=== PATIENT | male | born 1975 | race Caucasian/White ===

== ENCOUNTER → 2024-08-30 | Outpatient (CLI) | payer BC ==
[2024-08-30 13:54] VITALS: BP 134/84; PULSE 76; RESP 16; TEMP 98.1
--- NOTE | 2024-08-30 14:34 | P.SLEEP ---
History of Present Illness DATE: 08/30/2024 CONSULTATION/NEW PATIENT EVALUATION HISTORY OF PRESENT ILLNESS/SLEEP-WAKE EVALUATION: 48-year-old gentleman had been evaluated in the sleep center for possible obstructive sleep apnea hypopnea syndrome and significant excessive daytime sleepiness. In March 2024 patient had home sleep apnea test, which was negative for obstructive sleep apnea hypopnea syndrome. SLEEP SCHEDULE: Usually sleep schedule from 10 PM to 5 AM on working days and from 11 PM to 7 AM on weekend. FALLING ASLEEP: No problems with falling asleep. DURING SLEEP: Patient usually sleeps on the stomach position and wakes up from sleep multiple times with 1 episode of nocturia. No history of hypnogogical hallucinations, sleep paralysis, or cataplexy. DURING THE DAY/WAKE STATE: In the morning patient wake up tired, feels sleepiness during the day. [place] sleepiness scale is significantly increased to 14. Patient does not take naps during the day, but referred that will be able to fall asleep easily. PAST MEDICAL HISTORY: Hyperlipidemia, prediabetes, episodes of dizziness. PAST SURGICAL HISTORY: None. MEDICATIONS: None. SOCIAL HISTORY: Please see below. FAMILY HISTORY: Please see below. REVIEW OF SYSTEMS: Multiple awakenings from sleep, sleepiness during the day. No fevers. No double vision. No recent chest pain. No shortness of breath. No abdominal pain. No bleeding episodes. No blood in urine. No seizure episodes. PHYSICAL EXAMINATION: GENERAL: A pleasant patient without any distress. VITAL SIGNS: Please see below, weight 231 pounds, BMI 30.4. HEENT: PERRLA, EOMI. Evaluation of oropharynx showed tongue protrudes midline, low position of soft palate Mallampati 4, retrognathia 1 to 2 mm. NECK: Supple. No JVD. Thyroid is not palpable. 16.5 inches in circumference. LUNGS: Clear to percussion and to auscultation. Good air exchange. No wheezing or rhonchi. HEART: S1, S2 regular. No murmurs, gallops or rubs. ABDOMEN: Soft and nontender. Bowel sounds are present. No organomegaly appreciated. EXTREMITIES: No clubbing or cyanosis. ORTHOPEDIC PHYSICAL THERAPIST: Awake, alert, and oriented x3. Cranial nerves 2 to 7 intact. There is no fasciculation or atrophy noted. No focal deficits observed. ASSESSMENT: 1. Multiple awakenings from sleep, extremely low position of soft palate Mallampati 4, sleepiness, possible obstructive sleep apnea hypopnea syndrome. Results of home sleep apnea test which was done in another institution was negative. 2. Significant excessive daytime sleepiness with [place] Sleepiness Scale 14 dictate necessity to include hypersomnia and differential diagnosis. 3. Hyperlipidemia. 4. Prediabetes. 5 episodes of dizziness. 6 . Mild obesity, BMI 30.4. PLAN: 1. Polysomnography for evaluation of patient's breathing during sleep. Multiple sleep latency test if sleep study will be negative for obstructive sleep apnea hypopnea syndrome. 2. Following plan after reading sleep study. 3. Preferable position during sleep on the side. 4. No driving if patient feels any sleepiness. Patient is aware of civil and criminal liability for unsafe driving. 5. Sleep hygiene with regular sleep time for at least 7.5-8 hours. 6. Watching and losing weight. Thank you very much for referring this patient for consultation. Sincerely, Will Hutson MD, PhD, FAASM. Diplomat of [place] [employer], Sleep Medicine Board by [place] [employer] [place] [employer] Guide of [facility] [place] cc: Agustin Kidd MD, Martha Marinelli [facility] Past Medical History Past Medical History: No Reported History History of Any Multi-Drug Resistant Organisms: None Reported Past Anesthesia/Blood Transfusion Reactions: No Reported Reaction Past Psychological History: No Psychological Hx Reported Smoking Status: Current some day smoker Past Alcohol Use History: Occasional Past Drug Use History: None Reported - Past Family History Daughter(s) Family Medical History: Coronary Artery Disease (CAD) Physical Exam Vitals: Vital Signs Temp Pulse Resp BP Pulse Ox 08/30/24 13:53 98.1 F 76 16 134/84 96 Intake and Output 08/29/24 08/30/24 08/30/24 22:59 06:59 14:59 Other: Weight 104.78 kg Sleep Note - Sleep Data ESS Total: 6 - Sleep Note Sleep Note: Temperature: 98.1 F Pulse Rate: 76 Respiratory Rate: 16 Blood Pressure: 134/84 SpO2: 96 Height: 6 ft 1 in Weight: 104.78 kg BMI: Neck Circumference: 16.5
== END ==
LOC: 3 N SLEEP 13:27
PROVIDERS: ATTEND Internal Medicine
DX: G47.10 Hypersomnia, unspecified (principal); E78.5 Hyperlipidemia, unspecified; R73.03 Prediabetes; R42 Dizziness and giddiness; E66.9 Obesity, unspecified; Z68.30 Body mass index [BMI] 30.0-30.9, adult
CPT/HCPCS: 99202

== ENCOUNTER 2024-09-23 19:42 | Outpatient (CLI) | payer BC ==
--- NOTE | 2024-09-26 13:44 | P.PCN ---
Description of Procedure: POLYSOMNOGRAPHY REPORT PROCEDURE(S)/DATE(S): Polysomnography 09/23/2024 CLINICAL: Patient has been seen in the sleep center for evaluation of obstructive sleep apnea-hypopnea syndrome. Please see my consultation. Sleep study has been done for evaluation of patient breathing during the sleep. PROCEDURE: The standard montage for clinical polysomnography included the electroencephalogram, the electrooculogram, the mentalis surface electromyography and Lead II cardiography. The respiratory battery consisted of measurements of nasal/buccal air flow, pressure transducer measurements from nose, thoracic and/or abdominal effort and intercostal surface electromyography. Video monitoring has been done to check for any parasomnia events. Nocturnal oxyhemoglobin saturations were obtained by finger oximetry. Step-evans titration with positive airway pressure was utilized to control the respiratory events, if necessary. RESULTS: During the diagnostic sleep study sleep efficiency was decreased to 72.9%. Latency to sleep onset was prolonged to 38.5 min. Sleep architecture showed stage NI was increased to 10.5%, Delta sleep was normal 11.7%, REM sleep was normal 24.7%. Respiratory channel showed 16 obstructive apneas, 0 mixed apneas, 3 central apneas, 23 hypopneas with lowest oxygen level 84%. Total apnea hypopnea index was 8.4. Heart rate was in the range between 58 and 69, average 62. EMG showed 0 periodic limb movements per hour. IMPRESSIONS: 1. Obstructive sleep apnea hypopnea syndrome in mild range. Significant excessive daytime sleepiness with [place] Sleepiness Scale increased to 14. 2. No significant periodic limb movements have been documented. Please see other impressions from consultation PLAN: 1. The patient will have AutoPAP treatment for correction of respiratory abnormalities during the sleep. 2. Watching weight. 3. Sleep hygiene with regular time in bed for at least 7-1/2 hours. 4. No driving if feeling sleepiness. 5. I will see patient for follow-up visit to evaluate clinical response on treatment, compliance with treatment and [place] adjustments related to mask fitting pressure and humidification. Thank you very much for allowing me to participate in the management of your patient. Sincerely, Will Hutson MD, PhD, FAASM. Diplomat of [place] [employer], Sleep Medicine Board by [place] [employer] Sports Photographer of [facility] [address] cc: Agustin Kidd MD
== END 2024-09-24 05:30 | disposition home or self-care (01) ==
LOC: 3 N SLEEP 19:42
PROVIDERS: ATTEND Internal Medicine
DX: G47.33 Obstructive sleep apnea (adult) (pediatric) (principal); G47.419 Narcolepsy without cataplexy
CPT/HCPCS: 95810

== ENCOUNTER → 2025-01-17 | Outpatient (CLI) | payer BC ==
[2025-01-17 15:06] VITALS: BP 120/80; PULSE 80; RESP 16; TEMP 98.1
--- NOTE | 2025-01-17 16:11 | P.PROGSL ---
Subjective DATE: 01/17/2025 FOLLOW UP VISIT. Patient with obstructive sleep apnea hypopnea syndrome return to sleep center for follow-up visit. Recently patient had sleep study which documented obstructive sleep apnea hypopnea syndrome. Patient was initiated on PAP therapy and today is first visit after treatment was started. Patient was able to use PAP equipment every night for the whole night. The patient does not have significant problems with the mask, PAP pressure and humidification. [place] sleepiness scale is increased to 15. I checked information from PAP unit. PAP unit pressure 5-15, average 10.6 cm H2O. Usage is 70% for more then 4 hours, average 4 hours per night. Leak is 10.0 l/m, which is in acceptable range. Apnea Hypopnea Index is 0.8, which is perfect. MEDICATIONS: None During physical exam: GENERAL: A pleasant patient without any distress. VITAL SIGNS: Please see below, weight is 236. HEENT: PERRLA, EOMI.low position of soft palate, Mallapati 4 . NECK: Supple. No JVD. LUNGS: Clear to percussion and to auscultation. Good air exchange. No wheezing or rhonchi. HEART: S1, S2 regular. ABDOMEN: Soft and nontender.[] EXTREMITIES: No clubbing or cyanosis. HYDRAULIC LIFT DRIVER: Awake, alert, and oriented x3. No focal deficit. Impressions: 1. Obstructive sleep apnea-hypopnea syndrome. Patient demonstrated borderline compliance with treatment, benefiting from treatment. Patient still continued to feel some sleepiness during the day. 2. Hyperlipidemia. 3. Prediabetes. 4. Episodes of dizziness. 5. Mild obesity. Plan: 1. Continue using PAP equipment every night for the whole night. 2. To change air filter at least 1-2 times per month. 3. PAP unit should stay lower then position of the head. 4. Advised patient to remove all remaining water from humidifier canister daily and make it dry after each usage. Refill canister with fresh distilled water before each usage. 5. Sleep hygiene with regular time in bed for at least 8 hours. 6. Precautions related to driving. No driving if feel any sleepiness. 7. I will maintain prescription for PAP supplies including mask, tube, filters. 8. Follow up visit in 8 months or earlier if patient has any problems. 9. Watching weight. 10. We may consider multiple sleep latency test the patient will continue to have symptoms of excessive daytime sleepiness. Thank you very much for allowing me to participate in the management of your patient. Will Hutson MD, PhD, FAASM. Diplomat of [place] [employer], Sleep Medicine Board by [place] [employer] [facility] Liner [facility] [place] Objective - Vital Signs Vital Signs: Vital Signs Temp 98.1 F 01/17/25 15:05 Pulse 80 01/17/25 15:05 Resp 16 01/17/25 15:05 BP 120/80 01/17/25 15:05 Pulse Ox 97 01/17/25 15:05 FiO2 Intake & Output 01/16/25 01/17/25 01/17/25 18:59 06:59 18:59 Weight 107.048 kg
== END ==
LOC: 3 N SLEEP 14:56
PROVIDERS: ATTEND Internal Medicine
DX: G47.33 Obstructive sleep apnea (adult) (pediatric) (principal); E78.5 Hyperlipidemia, unspecified; E66.9 Obesity, unspecified; R73.03 Prediabetes; R42 Dizziness and giddiness
CPT/HCPCS: 99212